=== PATIENT | female | born 1955 | race Asian ===

== ENCOUNTER 2017-09-11 17:20 | Emergency (ER) | payer BC ==
[~2017-09-11] VITALS: Ht 152.4 cm; Wt 52.6 kg
[2017-09-11 17:38] VITALS: BP_SYST 123
[2017-09-11] MEDS ORDERED: HYDROcodone/ACETAMIN 5-325 MG TAB (NORCO/ VICODIN) PO ONE (18:15)
[2017-09-11 18:30] VITALS: BP_SYST 124
== END 2017-09-11 18:30 | disposition home or self-care (01) ==
LOC: SED 17:20
DX: S93.401A Sprain of unspecified ligament of right ankle, initial encounter (principal); R03.0 Elevated blood-pressure reading, without diagnosis of hypertension; Z90.710 Acquired absence of both cervix and uterus; W18.43XA Slipping, tripping and stumbling without falling due to stepping from one level to another, initial encounter; Y93.89 Activity, other specified; Y92.89 Other specified places as the place of occurrence of the external cause; Y99.8 Other external cause status
CPT/HCPCS: 99284